=== PATIENT | female | born 2005 | race African-American/Black ===

== ENCOUNTER 2024-06-22 15:36 | Emergency (ER) | payer BC, MEDICAID ==
[~2024-06-22 15:36] MED LIST: Iopamidol 370 76% 100 ML VIAL ONE
[2024-06-22 16:46] LABS: #Basophils Less than 0.03 10x3/uL (0.0-0.2); #Eosinophils 0.12 10x3/uL (0.0-0.5); #Monocytes 0.52 10x3/uL (0.0-1.1); #Neutrophils 3.46 10x3/uL (1.5-8.4); %Basophils 0.2 % (0.0-2.0); %Lymphocytes 31.7 % (18.0-47.0); %Monocytes 8.6 % (0.0-10.0); %Neutrophils 57.3 % (40.0-75.0); Hematocrit 30.6 % (34.9-44.5); Hemoglobin 10.2 g/dL (12.0-15.5); Mean Corpuscular HGB CONC 33.3 g/dL (32.0-36.0); Mean Corpuscular Hemoglobin 30.4 pg (27.0-33.0); Mean Corpuscular Volume 91.3 fL (81.6-98.3); Mean Platelet Volume 10.1 fL (7.4-10.4); Platelet Count 244 10x3/uL (150-450); RBC Distribution Width 12.9 % (11.5-14.5); Red Blood Cell (RBC) Count 3.35 10x6/uL (3.90-5.03); White Blood Cell (WBC) Count 6.03 10x3/uL (3.5-10.5)
[2024-06-22 17:09] LABS: Anion Gap 11 mmol/L (10-20); BUN (Urea Nitrogen) 16 mg/dL (7.0-18.7); Calc. Creatinine Clearance 0 mL/min (70-130); Calcium 9.6 mg/dL (7.8-10.44); Carbon Dioxide 22 mmol/L (22-29); Chloride 111 mmol/L (98-107); Estimated GFR 125; Glucose 93 mg/dL (70-105); Potassium 3.9 mmol/L (3.5-5.1); Sodium 140 mmol/L (136-145)
[2024-06-22 17:17] LABS: BHCG - Serum POSITIVE (NEGATIVE); Pregs Control Background? CLEAR/WHITE (CLR/WHITE); Pregs Control Bar Appear? YES (CONTROL BAR); Troponin I Less than 0.010 ng/mL (< 0.028)
== END 2024-06-22 19:39 | disposition home or self-care (01) ==
LOC: CSHERS 15:36
DX: M94.0 Chondrocostal junction syndrome [Tietze] (principal); Z55.6 Problems related to health literacy
CPT/HCPCS: 36415; 71045; 71275; 80048; 84484; 84702; 84703; 85025; 85379; 93005; Q9967